=== PATIENT | female | born 1995 | race Caucasian/White ===

== ENCOUNTER 2016-07-06 12:04 | Emergency (ER) | payer BC ==
[~2016-07-06] VITALS: Ht 162.6 cm; Wt 104.5 kg
[2016-07-06 12:06] VITALS: PULSE 88; TEMP 98.2
[2016-07-06 13:08] LABS: BASO # 0.1 (0.0-0.2); BASO % 0.8 % (0.0-2.0); EOS # 0.2 (0.0-0.7); EOS % 1.9 % (0-4.0); GRAN # 5.6 (1.4-6.5); GRAN % 64.3 % (42.2-75.2); HEMATOCRIT 44.1 % (35.0-45.0); HEMOGLOBIN 15.7 g/dl (12.0-15.0); LYMPH # 2.2 (1.2-3.4); LYMPH % 25.6 % (20.0-51.0); MEAN CELL VOLUME 87 fl (80.0-95.0); MEAN CORPUSCULAR HEMOGLOBIN 31 pg (26.0-32.0); MEAN CORPUSCULAR HGB CONC 36 g/dl (33.0-37.0); MEAN PLATELET VOLUME 9.9 fl (7.4-10.4); MONO # 0.6 (0.1-0.6); MONO % 7.3 % (1.7-9.3); PLATELET COUNT 379 K/mm3 (130-400); RED BLOOD COUNT 5.09 M/mm3 (4.10-5.30); REDCELL DISTRIBUTION WIDTH-CV 12.3 % (11.5-14.5); WHITE BLOOD COUNT 8.6 K/mm3 (4.8-10.8)
[2016-07-06 13:12] LABS: ADJUSTED CALCIUM 9.1 mg/dL (8.4-10.2); ALANINE AMINOTRANSFERASE 42 U/L (9-52); ALBUMIN 4.6 gm/dL (3.5-5.0); ALKALINE PHOSPHATASE 84 U/L (50-136); ANION GAP 14 mmol/L (7-16); BILIRUBIN,TOTAL 0.7 mg/dL (0.0-1.0); BLOOD UREA NITROGEN 10 mg/dL (7-17); C-REACTIVE PROTEIN < 0.5 mg/dL (0.0-0.9); CALCIUM 9.6 mg/dL (8.4-10.2); CARBON DIOXIDE 24 mmol/L (22-30); CHLORIDE 104 mmol/L (98-107); GLUCOSE 89 mg/dL (74-106); LIPASE 77 U/L (23-300); POTASSIUM 3.7 mmol/L (3.4-5.0); SODIUM 142 mmol/L (137-145); TOTAL PROTEIN 7.5 gm/dL (6.4-8.2)
[2016-07-06 13:53] LABS: PH 6 (5-8); URINE APPEARANCE Hazy; URINE BACTERIA None Seen /hpf; URINE BILIRUBIN Negative (NEGATIVE); URINE BLOOD Negative (NEGATIVE); URINE COLOR Yellow; URINE GLUCOSE Negative (NEGATIVE); URINE KETONE Negative (NEGATIVE); URINE RBC 0-2 /hpf; URINE UROBILINOGEN Negative (NEGATIVE); URINE WBC 20-50 /hpf
[2016-07-06 14:51] LABS: PH 5 (5-8); SQUAMOUS EPITHELIAL 0-2 /hpf; URINE APPEARANCE Hazy; URINE BACTERIA None Seen /hpf; URINE BILIRUBIN Negative (NEGATIVE); URINE BLOOD Negative (NEGATIVE); URINE COLOR Yellow; URINE GLUCOSE Negative (NEGATIVE); URINE KETONE Negative (NEGATIVE); URINE RBC 0-2 /hpf; URINE UROBILINOGEN Negative (NEGATIVE); URINE WBC 0-2 /hpf
[2016-07-06] MEDS ORDERED: NORCO 325 MG-51 TAB PO (15:27)
[2016-07-06] MEDS ORDERED: ZOFRAN 4MG T4 MG/TAB PO (15:27)
[2016-07-06] MEDS ORDERED: PROTONIX 40MG T40 MG PO (15:27)
[2016-07-06 15:49] VITALS: BP 131/91
== END 2016-07-06 15:48 | disposition home or self-care (01) ==
LOC: COL.ER 12:04
PROVIDERS: Emergency Medicine
DX: R10.84 Generalized abdominal pain (principal); Z90.49 Acquired absence of other specified parts of digestive tract
CPT/HCPCS: C9113; J2270; J2405; J7030; Q9967

== ENCOUNTER 2016-09-05 23:27 | Emergency (ER) | payer BC ==
[~2016-09-05] VITALS: Ht 162.6 cm; Wt 104.5 kg
[~2016-09-05 23:27] MED LIST: NORCO 325 MG-51 TAB PO; PROTONIX 40MG T40 MG PO; ZOFRAN 4MG T4 MG/TAB PO
[2016-09-05 23:32] VITALS: BP 149/86; PULSE 102; TEMP 97.8
[2016-09-06] MEDS ORDERED: CEPHALEXIN500 M1 PO (00:39)
== END 2016-09-06 01:34 | disposition home or self-care (01) ==
LOC: COL.ER 23:27
DX: S91.115A Laceration without foreign body of left lesser toe(s) without damage to nail, initial encounter (principal); S90.412A Abrasion, left great toe, initial encounter; W22.8XXA Striking against or struck by other objects, initial encounter; Y92.009 Unspecified place in unspecified non-institutional (private) residence as the place of occurrence of the external cause

== ENCOUNTER 2016-09-13 19:13 | Emergency (ER) | payer BC ==
[~2016-09-13 19:13] MED LIST changes: +CEPHALEXIN500 M1 PO
[2016-09-13 19:14] VITALS: BP 165/85; PULSE 101; TEMP 98.4
== END 2016-09-13 19:20 | disposition home or self-care (01) ==
LOC: COL.ER 19:13
DX: Z48.02 Encounter for removal of sutures (principal)

== ENCOUNTER 2016-12-30 23:04 | Emergency (ER) | payer BC ==
[~2016-12-30] VITALS: Ht 162.6 cm; Wt 109.1 kg
[2016-12-30 23:06] VITALS: TEMP 98.8
[2016-12-31] MEDS ORDERED: PREDNISONE20 MG PO (01:11)
[2016-12-31] MEDS ORDERED: CLEOCIN HC150 MG/CAP PO (01:11)
[2016-12-31 01:22] VITALS: BP 117/87; PULSE 82
== END 2016-12-31 01:22 | disposition home or self-care (01) ==
LOC: COL.ER 23:04
DX: K08.89 Other specified disorders of teeth and supporting structures (principal); T50.905A Adverse effect of unspecified drugs, medicaments and biological substances, initial encounter; F17.210 Nicotine dependence, cigarettes, uncomplicated
CPT/HCPCS: J1200; J2930; J7030

== ENCOUNTER 2018-01-17 09:42 | Day surgery (SDC) | payer BC ==
[~2018-01-17] VITALS: Ht 162.6 cm; Wt 114.1 kg
[~2018-01-17 09:42] MED LIST changes: +CLEOCIN HC150 MG/CAP PO; +PREDNISONE20 MG PO
[2018-01-17 10:14] VITALS: BP 146/95; PULSE 99; TEMP 98.8
[2018-01-17] MEDS ORDERED: PRILOSEC 20MG20 MG (11:07)
[2018-01-17 11:20] VITALS: BP 135/86; PULSE 84; TEMP 97.7
[2018-01-17 11:35] VITALS: BP 128/70; PULSE 84
[2018-01-17 11:50] VITALS: BP 125/75; PULSE 85
== END 2018-01-17 12:00 | disposition home or self-care (01) ==
LOC: SDCO 09:42
DX: K21.0 Gastro-esophageal reflux disease with esophagitis (principal); T17.308A Unspecified foreign body in larynx causing other injury, initial encounter; F41.9 Anxiety disorder, unspecified; F32.9 Major depressive disorder, single episode, unspecified; Z90.49 Acquired absence of other specified parts of digestive tract; Z88.0 Allergy status to penicillin
CPT/HCPCS: J2250; J2405; J3010; J7030